=== PATIENT | male | born 1990 | race Hispanic/Latino ===

== ENCOUNTER 2018-07-15 14:55 | Emergency (ER) | payer OTHER ==
[2018-07-15] MEDS ORDERED: diaZEpam 10 mg/2 ml Inj IVP STA (15:20)
[2018-07-15 15:49] LABS: BASO % 0.3 % (0.0-2.0); EOS # 0.1 K/uL (0.0-0.7); EOS % 1.1 % (0.0-4.0); HEMOGLOBIN 14.6 g/dL (12.0-18.0); LYMPH # 3.3 K/uL (1.0-4.3); LYMPH % 27.9 % (20.0-40.0); MEAN CELL VOLUME 90.8 fl (80.0-94.0); MEAN CORPUSCULAR HEMOGLOBIN 30.5 pg (27.0-31.0); MEAN CORPUSCULAR HGB CONC 33.6 g/dL (33.0-37.0); MEAN PLATELET VOLUME 8.3 fl (7.2-11.7); MONO # 0.8 K/uL (0.0-0.8); MONO % 6.8 % (0.0-10.0); NEUT # 7.4 K/uL (1.8-7.0); NEUT % 63.9 % (50.0-75.0); RBC 4.77 Mil/uL (4.40-5.90); RED CELL DISTRIBUTION WIDTH 12.2 % (11.5-14.5); WHITE BLOOD COUNT 11.7 K/uL (4.8-10.8)
[2018-07-15 15:55] LABS: BLOOD UREA NITROGEN 12 mg/dl (9-20); CALCIUM 9.9 mg/dL (8.4-10.2); GFR NON-AFRICAN AMERICAN > 60
--- NOTE | 2018-07-15 16:24 | ED PDOC ---
HPI: Chest Pain Time Seen by Provider: 07/15/18 15:19 Chief Complaint (Nursing): Chest Pain Chief Complaint (Provider): Chest pain History Per: Patient History/Exam Limitations: no limitations Onset/Duration Of Symptoms: Hrs Current Symptoms Are (Timing): Still Present Quality: Pressure Associated Symptoms: Diaphoresis Additional History Per: Patient Additional Complaint(s): 27yo male, otherwise well, comes to ER reporting mid-sternal chest pain, described as a "crushing" sensation x 6 hrs. Patient states the pain is constant and reports he has been doing cocaine for the past 28 hrs. He also reports drinking alcohol as well as taking Ambien 2 hrs prior to arrival. He reports a history of drug and alcohol abuse, and states he recently relapsed while in a 12-step program. He reports a history of depression and anxiety a well. Patient currently denies any nausea, vomiting or shortness of breath. No additional complaints. PMD: None Past Medical History Reviewed: Historical Data, Nursing Documentation, Vital Signs Vital Signs: Last Vital Signs Temp 97.9 F 07/15/18 14:59 Pulse 105 H 07/15/18 15:53 Resp 21 07/15/18 15:53 BP 139/82 07/15/18 15:53 Pulse Ox 98 07/15/18 15:53 - Medical History PMH: No Chronic Diseases Denies: Chronic Kidney Disease - Surgical History Surgical History: Cholecystectomy - Family History Family History: States: No Known Family Hx - Social History Alcohol: Other (history of alcoholism) Drugs: Cocaine - Allergies Allergies/Adverse Reactions: Allergies Allergy/AdvReac Type Severity Reaction Status Date / Time No Known Allergies Allergy Verified 07/15/18 14:56 Review of Systems ROS Statement: Except As Marked, All Systems Reviewed And Found Negative Constitutional: Negative for: Fever, Chills Cardiovascular: Positive for: Chest Pain Respiratory: Negative for: Shortness of Breath Gastrointestinal: Negative for: Nausea, Vomiting, Abdominal Pain Physical Exam - Reviewed Nursing Documentation Reviewed: Yes Vital Signs Reviewed: Yes - Physical Exam Appears: Positive for: Non-toxic Head Exam: Positive for: ATRAUMATIC, NORMAL INSPECTION, NORMOCEPHALIC Skin: Positive for: Warm, Diaphoresis Eye Exam: Positive for: EOMI, PERRL Neck: Positive for: Normal, Supple Cardiovascular/Chest: Positive for: Tachycardia (regular rate at 117), Other (chest pain is constant & unchanged upon palpation of chest) Respiratory: Positive for: Normal Breath Sounds. Negative for: Respiratory D istress Gastrointestinal/Abdominal: Positive for: Normal Exam, Soft. Negative for: Tenderness, Mass, Guarding, Rebound Back: Positive for: Normal Inspection. Negative for: L CVA Tenderness, R CVA Tenderness Extremity: Positive for: Normal ROM Neurologic/Psych: Positive for: Alert, Oriented. Negative for: Motor/Sensory Deficits - Laboratory Results Result Diagrams: 07/15/18 15:35 07/15/18 15:35 Lab Results: Troponin I < 0.0120 ng/mL (0.00-0.120) 07/15/18 15:35 - ECG ECG: Positive for: Interpreted By Me, Viewed By Me ECG Rhythm: Positive for: Sinus Tachycardia. Negative for: ST/T Changes Rate: 125 O2 Sat by Pulse Oximetry: 98 (RA) Pulse Ox Interpretation: Normal Medical Decision Making Medical Decision Makinyo w/ cocaine overdose, + chest pain and tachycardia Plan: -- Labs -- IV Fluids -- Valium 5mg PO -- EKG 1656 Labs reviewed, troponin negative 1736 On reassessment, patient reports improvement. Repeat vital signs are stable. Informed patient to contact his sponsor and follow up accordingly. Patient also instructed to return to ER if symptoms worsen or new symptoms arise. -- Scribe Attestation: Documented by Haylee Alejandra acting as a scribe for Herminia Ovalle MD. Provider Attestation: All medical record entries made by the Scribe were at my direction and personally dictated by me. I have reviewed the chart and agree that the record accurately reflects my personal performance of the history, physical exam, medical decision making, and the department course for this patient. I have also personally directed, reviewed, and agree with the discharge instructions and disposition. Disposition - Clinical Impression Clinical Impression: Atypical chest pain, Drug abuse - Disposition Disposition: Routine/Home Disposition Time: 17:37 Condition: IMPROVED Additional Instructions: Drink plenty of water and rest for next 24 hours. Do not use drugs or alcohol. Seek professional help for drug and alcohol abuse. Instructions: Chest Pain (DC), Drug Abuse and Drug Addiction (DC) Forms: [facility] (Faroese) Print Language: MOHAWK
[2018-07-15] MEDS: Sodium Chloride 0.9% 1,000 ML IV STA (17:20)
[2018-07-15 17:38] VITALS: O2SAT 98
--- NOTE | 2018-07-15 17:49 | RAD ---
Date of service: 07/15/2018 HISTORY: Cough. COMPARISON: No prior. TECHNIQUE: Chest PA and lateral FINDINGS: LUNGS: No active pulmonary disease. PLEURA: No significant pleural effusion identified. No pneumothorax apparent. CARDIOVASCULAR: No aortic atherosclerotic calcification present. Normal cardiac size. No pulmonary vascular congestion. OSSEOUS STRUCTURES: No significant abnormalities. VISUALIZED UPPER ABDOMEN: Normal. OTHER FINDINGS: None. IMPRESSION: No active disease.
[2018-07-15 18:40] VITALS: BP 119/65; RESP 20; TEMP 97.7
--- NOTE | 2018-07-15 19:30 | CARD ---
APPROVED REPORT Date of service: 07/15/2018 EKG Measurement Heart [id number] <Conclusion> Sinus tachycardia Otherwise normal ECG
[2018-07-19 09:20] VITALS: PULSE 125
== END 2018-07-15 18:15 | disposition home or self-care (01) ==
LOC: H.ER 14:55
DX: R07.89 Other chest pain (principal); F19.10 Other psychoactive substance abuse, uncomplicated
CPT/HCPCS: 71046; 80048; 84484; 85025; 87390; 93005; 96360; 99284; J7030